=== PATIENT | female | born 1935 | race Caucasian/White ===

== ENCOUNTER 2017-01-11 23:30 | Emergency (ER) | payer OTHER ==
[~2017-01-11] VITALS: Ht 157.5 cm; Wt 76.7 kg
[~2017-01-11 23:30] MED LIST: ASPIRIN CHILDRE81 MG PO; CORDARONE 200M200 MG PO; DIOVAN 160 MG160 MG PO; GEMFIBROZIL600 MG PO; JANUVIA 100MG100 MG PO; LANTUS100 U/ML SC; NOVOLOG100 U/ML SC; PREDNISONE10 MG PO; PREVACID 30MG30 MG PO; SIMVASTATIN20 MG PO; SYNTHROID0.05 MG PO; VENTOLIN H0.09 MG/Ac INH
[2017-01-11 23:55] VITALS: BP 168/72
--- NOTE | 2017-01-12 00:59 | ED THROAT/DENTAL COMPLAINT ---
History of Present Illness General Chief Complaint: Sore Throat, Dental Pain Stated Complaint: " PER PT LT SIDE TOOTH ACH" Source: patient, family, old records Exam Limitations: no limitations Vital Signs & Intake/Output Vital Signs & Intake/Output Vital Signs Date Time Temp Pulse Resp B/P B/P Pulse O2 O2 Flow FiO2 Mean Ox Delivery Rate 01/11 2355 168/72 01/11 2347 98.3 71 18 200/69 94 Room Air ED Intake and Output 01/12 0000 01/11 1200 Intake Total Output Total Balance Patient 169 lb Weight Weight Reported by Patient Measurement Method Allergies Coded Allergies: acetaminophen (From PERCOCET) (NAUSEA 01/12/17) oxycodone (From PERCOCET) (NAUSEA 01/12/17) Sulfa (Sulfonamide Antibiotics) (Intermediate, GI UPSET 01/12/17) codeine (Intermediate, GI UPSET 01/12/17) penicillin V (Intermediate, GI UPSET 01/12/17) Reconcile Medications Albuterol Sulfate (Ventolin Hfa) 0.09 MG/Actuation VALENTIN 2 PUFF INH Q4 SHORTNESS OF BREATH Amiodarone (Cordarone) 200 MG TAB 2 TAB PO SEE ADMIN CRITERIA HEART TAKE THREE TIMES A DAY TILL THEN TAKE TWICE A DAY TILL 12/28 THEN TAKE HALF TAB DAILY UNTIL CHANGED BY DOOR CUTTER Aspirin (Children's Aspirin) 81 MG CTB 81 MG PO DAILY HEART Gemfibrozil 600 MG TABLET 1 TAB PO DAILY DYSLIPIDEMIA (Reported) Insulin Aspart, Recombinant (Novolog Flexpen) 100 UNIT/ML INSULN.PEN 10 UNIT SC DAILY DM (Reported) Insulin Aspart, Recombinant (Novolog) 100 U/ML LILIANA 8-9 UNITS SC TID DIABETES (Reported) HOLD: PER SLIDING SCALE Insulin Glargine, Recombinan (Lantus) 100 U/ML LILIANA 54 UNITS SC QHS DIABETES ( Reported) Insulin Glargine,Hum.rec.anlog (Lantus Solostar) 100 UNIT/ML (3 ML) INSULN.PEN 30 UNIT SC QPM DM (Reported) Lansoprazole (Prevacid) 30 MG CAPSULE.DR 1 CAP PO DAILY GI (Reported) HOLD: PHARM SUBSTITUTION Levothyroxine Sodium (Synthroid) 0.05 MG TAB 0.05 MG PO DAILY AC THYROID ( Reported) Metoprolol Succinate 25 MG TAB 1 TAB PO DAILY HTN (Reported) Pravastatin Sodium 40 MG TABLET 1 TAB PO QPM CHOL (Reported) Prednisone 10 MG TAB 1 TAB PO TAPER COPD EXACERBATION 4 TABS DAILY TOMORROW 11/22/14. 3 TABS DAILY FOR TWO DAYS 11/23/14 TO 11/24/14 2 TABS DAILY FOR TWO DAYS 11/25/14 TO 11/26/14 1 TAB DAILY FOR TWO DAYS 11/27/14 TO 11/28/14 Simvastatin (Zocor) 20 MG TAB 1 TAB PO QPM CHOLESTEROL (Reported) Sitagliptin Phosphate (Januvia) 100 MG TABLET 1 TAB PO DAILY DIABETES ( Reported) Tramadol HCl (Ultram) 50 MG TABLET 1-2 TAB PO Q6PRN PRN severe pain Valsartan 160 MG TABLET 1 TAB PO DAILY HTN (Reported) Valsartan (Diovan) 160 MG TABLET 1 TAB PO DAILY HYPERTENSION (Reported) HOLD: HYPONATREMIA Core Measure Meds Pre-Hospital aspirin Triage Note: TRIAGE: PATIENT TO ER FROM HOME REPORTING HAVE AN ABCESS TO L LOWER TOOTH AND TOOTH NEEDS TO BE REMOVED, PLACED ON ABX, TAKING PRESCRIBED. PATIENT REPORTS "I WASN'T IN PAIN WHEN THE DENTIST ASKED ME IF I WANTED ANYTHING FOR PAIN BUT I WASN'T HAVING IT THEN. NOW I AM." Triage Nurses Notes Reviewed? yes Onset: Morning Duration: hour(s):, better, constant, continues in ED Timing: recent history Injury Environment: home Severity: severe No Modifying Factors: none LMP (ages 10-50): post menopausal : No Patient currently breastfeeds: No HPI: Patient reports having issues with her teeth became worse several days prior to admission with pain to left lower first molar. She went to her dentist was diagnosed with a dental abscess put on antibiotics and referred to oral surgery. Prior to admission she had severe pain with swelling to the left lower jaw. She denies fever chills nausea vomiting diarrhea abdominal pain chest pain shortness of breath headache dysuria bleeding. Past History Travel History Traveled to [place] past 21 day No Medical History Any Pertinent Medical History? see below for history Neurological: NONE EENT: allergies (sesonal), sinusitis Cardiovascular: hypertension, hyperlipidemia Respiratory: bronchitis Gastrointestinal: GERD, L INGUINAL HERNIA hemorrhoids Hepatic: NONE Renal: NONE Musculoskeletal: osteoarthritis Psychiatric: NONE, anxiety, depression Endocrine: NONE (Type 2 DM), diabetes, hypothyroidism Blood Disorders: NONE Cancer(s): NONE, FNA of Right thyroid nodule done in 10/07/07 documents Follicular neoplasm. 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 MOTHER Relation not specified for: FHx: myocardial infarction FHx: osteoporosis Hx Contributory? No Review of Systems Review of Systems Constitutional: Reports: no symptoms. EENTM: Reports: see HPI, tooth pain. Respiratory: Reports: no symptoms. Cardiovascular: Reports: no symptoms. GI: Reports: no symptoms. Genitourinary: Reports: no symptoms. Musculoskeletal: Reports: no symptoms. Skin: Reports: no symptoms. Neurological/Psychological: Reports: no symptoms. Hematologic/Endocrine: Reports: no symptoms. Immunologic/Allergic: Reports: no symptoms. All Other Systems: Reviewed and Negative Physical Exam Physical Exam General Appearance: well developed/nourished, alert, awake, anxious, mild distress, obese Head: atraumatic, normal appearance, tenderness (left mandible) Eyes: Bilateral: normal appearance, PERRL, EOMI. Ears: Bilateral: canal normal, Tympanic normal. Nose: normal inspection Mouth/Throat: dental tenderness, mandibular swelling Neck: normal inspection, supple, full range of motion, trachea midline, lymphadenopathy (R), lymphadenopathy (L) Cardiovascular/Respiratory: normal breath sounds, normal peripheral pulses, regular rate/rhythm, no respiratory distress Back: normal inspection, normal range of motion Neurologic/Psych: no motor/sensory deficits, awake, alert, oriented x 3, normal gait, normal mood/affect, patient educator II-XII nml as tested Skin: intact, normal color, warm/dry Core Measures ACS in differential dx? No Severe Sepsis Present: No Septic Shock Present: No Progress Differential Diagnosis: carious tooth, odontogenic abscess, stomatitis/ gingivitis Plan of Care: Current Medications Sig/Boogie Start time Last Medication Dose Stop Time Status Admin Naproxen 500 MG ONCE ONE 01/12 100 UNVr (Naprosyn) 01/12 101 Departure Departure Time of Disposition: 56 Disposition: HOME OR SELF CARE Condition: Stable Clinical Impression Primary Impression: Dental abscess Referrals: MIKAN MD,LISA S. (PCP/Family) Additional Instructions: Call the oral surgeon for follow up. Kenyatta for pain Tramadol for severe pain Departure Forms: Customer Survey General Discharge Information Prescriptions: Current Visit Scripts Tramadol HCl (Ultram) 1-2 TAB PO Q6PRN PRN severe pain #30 TAB
[2017-01-12] MEDS ORDERED: LANTUS SOL100 UNIT/1 SC (01:10)
[2017-01-12] MEDS ORDERED: NOVOLOG FL100 UNIT/1 SC (01:10)
[2017-01-12] MEDS ORDERED: PRAVASTATIN SOD40 M2 PO (01:11)
[2017-01-12] MEDS ORDERED: VALSARTAN160 M1 PO (01:11)
[2017-01-12] MEDS ORDERED: METOPROLOL SUCC25 M1 PO (01:11)
[2017-01-12] MEDS ORDERED: ULTRAM50 M1 PO (01:23)
== END 2017-01-12 01:34 ==
LOC: ERH 23:30
DX: K04.7 Periapical abscess without sinus (principal)

== ENCOUNTER 2017-10-30 15:50 | Emergency (ER) | payer OTHER ==
[~2017-10-30] VITALS: Ht 157.5 cm; Wt 73.9 kg
[~2017-10-30 15:50] MED LIST changes: +LANTUS SOL100 UNIT/1 SC; +METOPROLOL SUCC25 M1 PO; +NOVOLOG FL100 UNIT/1 SC; +PRAVASTATIN SOD40 M2 PO; +ULTRAM50 M1 PO; +VALSARTAN160 M1 PO
[2017-10-30 16:34] LABS: ABSOLUTE BASOPHIL COUNT 0.1 /CUMM (0.0-0.2); ABSOLUTE EOSINOPHIL COUNT 0.1 /CUMM (0.0-0.7); ABSOLUTE GRANULOCYTE CT 7.6 /CUMM (1.4-6.5); ABSOLUTE LYMPH COUNT 1.5 /CUMM (1.2-3.4); ABSOLUTE MONOCYTE COUNT 0.6 /CUMM (0.10-0.60); BASOPHIL % 0.5 % (0.0-2.0); EOSINOPHIL % 1.4 % (0-5); GRANULOCYTE % 76.4 % (42.2-75.2); HEMATOCRIT 42.4 % (37-47); MEAN CORPUSCULAR HGB 30.4 PG (27.0-31.0); MEAN CORPUSCULAR VOLUME 89.4 FL (81.0-99.0); MEAN PLATELET VOLUME 8.1 FL (7.4-10.4); PLATELET COUNT 279 /CUMM (130-400); RBC DISTRIBUTION WIDTH 13.5 % (11.5-14.5); RED BLOOD CELL CT 4.74 /CUMM (4.20-5.40)
--- NOTE | 2017-10-30 18:20 | ED SYNCOPE COMPLAINT ---
History of Present Illness General Chief Complaint: Syncope and Near-Syncope Stated Complaint: SYNCOPAL EPISODE LAST PM Source: patient Exam Limitations: no limitations Vital Signs & Intake/Output Vital Signs & Intake/Output Vital Signs Date Time Temp Pulse Resp B/P B/P Pulse O2 O2 Flow FiO2 Mean Ox Delivery Rate 10/30 2125 98.6 80 18 164/71 99 Room Air 10/30 2124 96 Room Air 10/30 1949 96.6 84 18 173/84 94 Room Air 10/30 1600 96.5 84 18 189/72 96 Room Air Room Air Allergies Coded Allergies: acetaminophen (From PERCOCET) (NAUSEA 01/12/17) oxycodone (From PERCOCET) (NAUSEA 01/12/17) Sulfa (Sulfonamide Antibiotics) (Intermediate, GI UPSET 01/12/17) codeine (Intermediate, GI UPSET 01/12/17) penicillin V (Intermediate, GI UPSET 01/12/17) Reconcile Medications Albuterol Sulfate (Ventolin Hfa) 0.09 MG/Actuation VALENTIN 2 PUFF INH Q4 SHORTNESS OF BREATH Amiodarone (Cordarone) 200 MG TAB 2 TAB PO SEE ADMIN CRITERIA HEART TAKE THREE TIMES A DAY TILL THEN TAKE TWICE A DAY TILL 12/28 THEN TAKE HALF TAB DAILY UNTIL CHANGED BY STEAM OVEN 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 Aspirin (Children's Aspirin) 81 MG CTB 81 MG PO DAILY HEART Gemfibrozil 600 MG TABLET 1 TAB PO DAILY DYSLIPIDEMIA (Reported) Insulin Aspart, Recombinant (Novolog Flexpen) 100 UNIT/ML INSULN.PEN 10 UNIT SC DAILY DM (Reported) Insulin Aspart, Recombinant (Novolog) 100 U/ML LILIANA 8-9 UNITS SC TID DIABETES (Reported) HOLD: PER SLIDING SCALE Insulin Glargine, Recombinan (Lantus) 100 U/ML LILIANA 54 UNITS SC QHS DIABETES ( Reported) Insulin Glargine,Hum.rec.anlog (Lantus Solostar) 100 UNIT/ML (3 ML) INSULN.PEN 30 UNIT SC QPM DM (Reported) Lansoprazole (Prevacid) 30 MG CAPSULE.DR 1 CAP PO DAILY GI (Reported) HOLD: PHARM SUBSTITUTION Levothyroxine Sodium (Synthroid) 0.05 MG TAB 0.05 MG PO DAILY AC THYROID ( Reported) Metoprolol Succinate 25 MG TAB 1 TAB PO DAILY HTN (Reported) Pravastatin Sodium 40 MG TABLET 1 TAB PO QPM CHOL (Reported) Prednisone 10 MG TAB 1 TAB PO TAPER COPD EXACERBATION 4 TABS DAILY TOMORROW 11/22/14. 3 TABS DAILY FOR TWO DAYS 11/23/14 TO 11/24/14 2 TABS DAILY FOR TWO DAYS 11/25/14 TO 11/26/14 1 TAB DAILY FOR TWO DAYS 11/27/14 TO 11/28/14 Simvastatin (Zocor) 20 MG TAB 1 TAB PO QPM CHOLESTEROL (Reported) Sitagliptin Phosphate (Januvia) 100 MG TABLET 1 TAB PO DAILY DIABETES ( Reported) Tramadol HCl (Ultram) 50 MG TABLET 1-2 TAB PO Q6PRN PRN severe pain Valsartan 160 MG TABLET 1 TAB PO DAILY HTN (Reported) Valsartan (Diovan) 160 MG TABLET 1 TAB PO DAILY HYPERTENSION (Reported) HOLD: HYPONATREMIA Triage Note: PT TO ED WITH C/O "I WAS LAYING DOWN, I TOOK MY BLOOD PRESSURE PILL AND MY PILL FOR MY FAST HEART BEAT, AND I WAS OUT FOR 45 MINUTES, LIKE A DEEP SLEEP, AND WHEN I GOT UP I WAS CONFUSED" "I WAS OK AFTER A COUPLE OF MINUTES". PT STATING BLOOD SUGAR WAS 125 THIS AM. Triage Nurses Notes Reviewed? yes Timing: yesterday Precipitating Factors: none Context: rest Loss of Consciousness: prolonged (minutes) HPI: 82yo female presents with hx of HTN, DM to ED complaining of syncopal episode last night. Patient states that around 8:45PM last night she was lying down watching TV and fell into a "deep sleep" for about 45 mintues. Patient states that when she woke up she felt disoriented and generalized fatigue and weakness. Patient has never had a similar episode in the past, she states she had no prodrome symptoms prior to "deep sleep" episode. Patient reports mild generalized headache after episode for which she took tylenol with good relief. Patient states she was unconscious for that amount of time. There was no witness to this episode. Patient also reports suprapubic pressure for the past few days. Patient currently feels mild fatigue and weakness. The patient denies dysuia, vomiting, fevers, chills, chest pain, abdominal pain. (Dannielle MORALES,Margaret Neri) Past History Travel History Traveled to [place] past 21 day No Medical History Any Pertinent Medical History? see below for history Neurological: NONE EENT: allergies (sesonal), sinusitis Cardiovascular: hypertension, hyperlipidemia Respiratory: bronchitis Gastrointestinal: GERD, L INGUINAL HERNIA hemorrhoids Hepatic: NONE Renal: NONE Musculoskeletal: osteoarthritis Psychiatric: NONE, anxiety, depression Endocrine: diabetes, hypothyroidism Blood Disorders: NONE Cancer(s): NONE, FNA of Right thyroid nodule done in 10/07/07 documents Follicular neoplasm. 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 MOTHER Relation not specified for: FHx: myocardial infarction FHx: osteoporosis Hx Contributory? No (Margaret Lomas) Review of Systems Review of Systems Constitutional: Reports: no symptoms. EENTM: Reports: no symptoms. Respiratory: Reports: no symptoms. Cardiovascular: Reports: see HPI. GI: Reports: see HPI. Genitourinary: Reports: no symptoms. Musculoskeletal: Reports: no symptoms. Skin: Reports: no symptoms. Neurological/Psychological: Reports: see HPI. All Other Systems: Reviewed and Negative (Margaret Lomas) Physical Exam Physical Exam General Appearance: well developed/nourished, no apparent distress, alert, awake Head: atraumatic, normal appearance Eyes: Bilateral: normal appearance, PERRL, EOMI. Ears, Nose, Throat: normal pharynx, hearing grossly normal Neck: normal inspection, supple, full range of motion Respiratory: normal breath sounds, no respiratory distress, lungs clear Cardiovascular: regular rate/rhythm Gastrointestinal: normal bowel sounds, soft, no organomegaly, mild suprapubic tenderness Back: normal inspection, normal range of motion Extremities: normal inspection, normal range of motion Psychiatric: awake, alert, oriented x 3 Cranial Nerves: normal hearing, normal speech, PERRL, CN II-XII intact, cerebellar testing WNL, gait normal Coordination/Gait: normal finger to nose, normal gait Motor/Sensory: no motor/sensory deficits Skin: intact, normal color, warm/dry Core Measures ACS in differential dx? Yes CVA/TIA Diagnosis: No Sepsis Present: No Sepsis Focused Exam Completed? No (Dannielle MORALES,Margaret Neri) Progress Differential Diagnosis: AMI, drug induced syncope, orthostatic syncope, seizure, TIA/CVA, arrhythmia Plan of Care: Orders Procedure Date/time Status FingerStick- Glucose 10/30 1856 Active Add-on Test (ER Only) 10/30 1823 Active URINE DRUG SCREEN FOR ER ONLY 10/30 1823 Complete URINALYSIS 10/30 182 Complete ETHANOL 10/30 1617 Complete TROPONIN LEVEL 10/30 1608 Complete COMPREHENSIVE METABOLIC PANEL 10/30 160 Complete CBC WITHOUT DIFFERENTIAL 10/30 1608 Complete EKG 10/30 1608 Active Laboratory Tests 10/30/17 1905: Urine Opiates Screen < 100.00, Methadone Screen < 40, Barbiturate Screen < 60, Ur Phencyclidine Scrn < 6.00, Amphetamines Screen < 100, U Benzodiazepines Scrn < 85, Urine Cocaine Screen < 50, Urine Cannabis Screen < 5.00, Urine Color YEL, Urine Clarity HAZY H, Urine pH 5.5, Ur Specific [place] >= 1.030, Urine Protein NEG, Urine Ketones NEG, Urine Nitrite NEG, Urine Bilirubin NEG, Urine Urobilinogen 0.2, Ur Leukocyte Esterase MOD H, Ur Microscopic SEDIMENT EXAMINED , Urine RBC 1-3, Urine WBC 5-10 H, Ur Epithelial Cells MOD H, Urine Bacteria RARE H, Urine Mucus RARE, Urine Hemoglobin NEG, Urine Glucose 100 H 10/30/17 161: Anion Gap 9, Estimated GFR > 60, BUN/Creatinine Ratio 26.7 H, Glucose 217 H, Calcium 9.8, Total Bilirubin 0.5, AST 16, ALT 26, Alkaline Phosphatase 98, Troponin I < 0.01, Total Protein 6.4, Albumin 4.1, Globulin 2.3, Albumin/ Globulin Ratio 1.8, CBC w Diff NO MAN DIFF REQ, RBC 4.74, MCV 89.4, MCH 30.4, MCHC 34.0, RDW 13.5, MPV 8.1, Gran % 76.4 H, Lymphocytes % 15.5 L, Monocytes % 6.2, Eosinophils % 1.4, Basophils % 0.5, Absolute Granulocytes 7.6 H, Absolute Lymphocytes 1.5, Absolute Monocytes 0.6, Absolute Eosinophils 0.1, Absolute Basophils 0.1, Serum Alcohol < 10.0 EKG without significant change from prior study. Patient's blood work is within normal limits, troponin negative, electrolytes within normal limits, no acute anemia. Patient is neurologically intact on physical exam without focal neurologic deficit. Vital signs are stable. Will obtain head CT/CTA to further assess for her ?syncopal episode. The patient was signed out to Dr. Cr pending CT scan results. Initial ED EKG: sinus rhythm @79bpm, nonspecific ST changes Prior EKG: changed (11/19/14, subtle t wave changes) Hand-Off Endorsed To: Deepak Cr MD Endorsed Time: 1918 Pending: CT (Margaret Lomas) Departure Departure Condition: Stable Referrals: Marce Mccullough MD (PCP/Family) Departure Forms: Customer Survey General Discharge Information (Margaret Lomas) Departure Disposition: HOME OR SELF CARE Clinical Impression Primary Impression: Transient alteration of awareness Additional Instructions: Follow-up with your primary care physician this week for reevaluation. Since the cause of your episode is unclear please return if any concerns or sudden worsening. Please note that there might be incidental findings in your evaluation that are unrelated to the current emergency department visit. Please notify your primary care doctor about this emergency department visit in order to obtain and review all of the testing performed so that these incidental findings can be monitored as needed. If you had an x-ray performed, please understand that some fractures may not be seen on the initial set of x-rays. If your symptoms persist you might need a repeat set of x-rays to check for such a fracture. If you had a laceration evaluated, please understand that foreign bodies such as glass or wood may not be visible to the naked eye or on plain x-rays. If the wound becomes red, swollen, increasingly more painful or if there is any drainage from the wound, please have it reevaluated by a physician for the possibility of a retained foreign body. If you're unable to follow up as outlined in the discharge instructions please return to the emergency department. Thank you for choosing the [facility] Emergency Department for your care. It was a pleasure to serve you today. Deepak Cr M.D. [facility] PA/DEPARTMENT HEAD Co-Sign Statement Statement: ED Attending supervision documentation- [x] I saw and evaluated the patient. I have also reviewed all the pertinent lab results and diagnostic results. I agree with the findings and the plan of care as documented in the PA's/DEPARTMENT HEAD's documentation. [] I have reviewed the ED Record and agree with the PA's/DEPARTMENT HEAD's documentation. [] Additions or exceptions (if any) to the PAs/DEPARTMENT HEAD's note and plan are summarized below: [] (Shaye PRESCOTT,Deepak Sanders)
--- NOTE | 2017-10-30 19:53 | CT SCAN REPORT ---
EXAMINATION: CT ANGIOGRAM BRAIN CLINICAL INFORMATION: 82-year-old woman with syncopal episode. COMPARISON: None. TECHNIQUE: Test bolus sequences followed by intravenous administration 95 mL of Optiray 350. Helical imaging was performed in the axial plane from the skull base to the vertex. A non contrast and postcontrast CT of the head was also performed. The data was processed at the process safety engineering technologist's workstation for generation of MIP sequences. Angled MIPs and volume rendered reformatted images were also generated at an offline 3D workstation. Stenoses are assessed in accordance with NASCET criteria unless otherwise indicated. DLP: 1337 mGy-cm FINDINGS: Brain: No intracranial mass, hemorrhage, extra-axial collection, or midline shift is apparent. No pathologic intra-axial enhancement or regional oligemia is visualized. The paranasal sinuses remain well aerated. Brain CTA: There is normal opacification of major intracranial arteries. No focal flow-limiting stenosis, discrete proximal large artery occlusion, or saccular intradural aneurysm is identified. Timing of the contrast allows assessment of the major dural venous sinuses, which all opacify normally. IMPRESSION: Normal CT/CTA.
[2017-10-30 21:26] VITALS: BP 164/71
== END 2017-10-30 21:27 ==
LOC: ERH 15:50
PROVIDERS: Emergency Medicine
DX: R40.4 Transient alteration of awareness (principal); I10 Essential (primary) hypertension; E11.9 Type 2 diabetes mellitus without complications; Z79.4 Long term (current) use of insulin; Z72.0 Tobacco use
CPT/HCPCS: 80307; 81001; 93005; 93010; G0480